=== PATIENT | female | born 1945 | race Caucasian/White ===

== ENCOUNTER → 2020-08-12 15:26 | Outpatient (CLI) | payer MEDICARE, OTHER, SELFPAY ==
[2020-06-28 11:14] VITALS: BMI 38.9
--- NOTE | 2020-08-12 15:33 | VDUE_ITS ---
Reason For Study: Swelling Left Proximal Left jugular vein is spontaneous, widely patent, phasic, with no intraluminal echogenicity noted. Left subclavian vein is spontaneous, widely patent, phasic, with no intraluminal echogenicity noted. Left Arm Left axillary vein is spontaneous, patent, phasic, competent, compressible and demonstrates augmentation. Left brachial vein is compressible. Left cephalic vein is compressible. Left basilic vein is compressible. Left Lower Arm Left radial vein is compressible. Left ulnar vein is compressible. Patient Safety Prelim to Maximiliano/Gurpreet. VL/Venous Duplex US, Unilateral Interpretation Summary No evidence for acute deep venous thrombosis[left] upper extremity with patent and compressible cephalic and basilic veins. Ordering Physician: Angelina Viera Referring Physician: Enid Quiroz Performed By: Ekta Lang RVT ?
--- NOTE | 2020-08-12 16:40 | RAD_ITS ---
STUDY: X-RAY - LEFT SHOULDER REASON FOR EXAM: Female, 74 years old. INCREASED SWELLING TECHNIQUE: 3 view(s) of the shoulder. COMPARISON: 08/09/2020. FINDINGS: Nondisplaced fracture seen of the greater tuberosity and across the surgical neck. Humeral head is caudal to normal position suggestive of ligamentous laxity and/or effusion. Mixed lytic and sclerotic density of the humeral head is suspicious for AVN or neoplasm. There is degenerative arthrosis of the acromioclavicular joint without inferior osseous spur formation. Normal acromion. The soft tissue structures are unremarkable. Normal visualized pulmonary apex. RAD/Shoulder min 2 Views IMPRESSION: Nondisplaced proximal humeral fractures. Abnormal appearance of the humeral head. Cannot exclude ligamentous laxity and/or effusion. Consider further evaluation such as MRI. Electronically Signed: Bryan Liu MD at 23:05 EDT , Service support ,
== END ==
LOC: CVS 15:30 → RAD 16:35
PROVIDERS: PCP Family Medicine
DX: S42.202A Unspecified fracture of upper end of left humerus, initial encounter for closed fracture (principal); M79.89 Other specified soft tissue disorders
CPT/HCPCS: 73030; 93971

== ENCOUNTER → 2021-07-04 | Outpatient (CLI) | payer MEDICARE, OTHER, SELFPAY ==
[2021-07-04 18:32] LABS: CRP < 2.90 mg/L (0.0-3.0)
[2021-07-06 16:09] LABS: Endomysial Antibody IgA Negative (Negative)
[2021-07-06 20:19] LABS: Immunoglobulin A 151 mg/dL (64-422); t-Transglutaminase IgA 3 U/mL (0-3)
== END | disposition home or self-care (01) ==
PROVIDERS: PCP Family Medicine; Referring Provider Internal Medicine Gastroenterology; Visit Provider Internal Medicine Gastroenterology
DX: R19.7 Diarrhea, unspecified (principal)
CPT/HCPCS: 36415; 82784; 83516; 86140; 86255